=== PATIENT | female | born 1940 | race Caucasian/White ===

== ENCOUNTER 2017-10-06 10:49 | Outpatient (CLI) ==
[2014-07-27 10:30] VITALS: BMI 25.4
== END 2017-10-06 10:50 | disposition critical access hospital (66) ==
LOC: AMBL 10:49
PROVIDERS: ATTEND Internal Medicine
DX: B02.23 Postherpetic polyneuropathy (principal); Z99.81 Dependence on supplemental oxygen; F17.210 Nicotine dependence, cigarettes, uncomplicated